=== PATIENT | male | born 1950 | race Caucasian/White ===

== ENCOUNTER 2016-04-03 05:32 | Emergency (ER) | payer OTHER ==
[~2016-04-03] VITALS: Ht 170.2 cm; Wt 79.4 kg
[2016-04-03] MEDS ORDERED: ZOCOR20 MG PO (05:45)
[2016-04-03] MEDS ORDERED: FLECAINIDE ACET50 M1 PO (05:46)
[2016-04-03] MEDS ORDERED: BRIMONIDINE TAR1 BOT OP (05:47)
[2016-04-03] MEDS ORDERED: TRIMETHOPRIM /P10 M1 OP (05:47)
[2016-04-03] MEDS ORDERED: ASPIR 8181 MG PO (05:48)
[2016-04-03] MEDS ORDERED: TRAVATAN Z2.5 ML OPHTHALMIC (05:48)
[2016-04-03] MEDS ORDERED: FISH OIL 1,001000 M2 PO (05:48)
[2016-04-03] MEDS ORDERED: CENTRUM SILVER1 EAC2 PO (05:49)
[2016-04-03 09:32] VITALS: BP 110/72
== END 2016-04-03 09:34 | disposition short-term general hospital (02) ==
LOC: ER 05:32
DX: S01.01XA Laceration without foreign body of scalp, initial encounter (principal); F10.99 Alcohol use, unspecified with unspecified alcohol-induced disorder; I48.91 Unspecified atrial fibrillation; W18.09XA Striking against other object with subsequent fall, initial encounter; Y93.9 Activity, unspecified; Y92.9 Unspecified place or not applicable; Y99.9 Unspecified external cause status

== ENCOUNTER → 2016-08-24 | Outpatient (CLI) | payer OTHER ==
[~2016-08-24] MED LIST: ASPIR 8181 MG PO; BRIMONIDINE TAR1 BOT OP; CENTRUM SILVER1 EAC2 PO; FISH OIL 1,001000 M2 PO; FLECAINIDE ACET50 M1 PO; TRAVATAN Z2.5 ML OPHTHALMIC; TRIMETHOPRIM /P10 M1 OP; ZOCOR20 MG PO
[2016-08-24 09:58] LABS: CREATININE 1.1 mg/dL (0.7-1.3)
== END ==
LOC: LABMALL 08:53
PROVIDERS: Family Medicine
DX: K57.90 Diverticulosis of intestine, part unspecified, without perforation or abscess without bleeding (principal); N30.90 Cystitis, unspecified without hematuria; N32.0 Bladder-neck obstruction